=== PATIENT | female | born 1955 | race Caucasian/White ===

== ENCOUNTER 2017-10-06 08:36 | Outpatient (CLI) | payer BC | END 2017-10-06 08:37 | disposition home or self-care (01) | LOC: BICULT 08:36 | PROVIDERS: ATTEND Urology | DX: N20.0 Calculus of kidney (principal); Z90.49 Acquired absence of other specified parts of digestive tract; M47.9 Spondylosis, unspecified | CPT/HCPCS: 36415; 74018; 76770; 80053; 80061; 81001; 82043; 83036; 84550; 87086 ==

== ENCOUNTER 2018-02-13 19:30 | Outpatient (CLI) | payer BC | END 2018-02-13 19:31 | disposition home or self-care (01) | LOC: SLEEPLAB 19:30 | PROVIDERS: ATTEND Family Medicine | DX: G47.33 Obstructive sleep apnea (adult) (pediatric) (principal); R53.83 Other fatigue; E66.9 Obesity, unspecified; R06.83 Snoring; I10 Essential (primary) hypertension; E11.9 Type 2 diabetes mellitus without complications; Z68.42 Body mass index [BMI] 45.0-49.9, adult | CPT/HCPCS: 95811 ==

== ENCOUNTER 2018-02-28 14:30 | Outpatient (CLI) | payer BC | END 2018-02-28 14:31 | disposition home or self-care (01) | LOC: BICMAMMO 14:30 | PROVIDERS: ATTEND Family Medicine | DX: R92.8 Other abnormal and inconclusive findings on diagnostic imaging of breast (principal); R92.1 Mammographic calcification found on diagnostic imaging of breast | CPT/HCPCS: 77066; G0279 ==

== ENCOUNTER → 2018-03-02 | Day surgery (SDC) | payer BC | LOC: BICULT 12:40 | PROVIDERS: ATTEND Family Medicine | PROC: 0HBT3ZX Excision of Right Breast, Percutaneous Approach, Diagnostic (ICD-10-PCS; principal; 2018-03-02) | DX: C50.411 Malignant neoplasm of upper-outer quadrant of right female breast (principal); Z17.0 Estrogen receptor positive status [ER+] | CPT/HCPCS: 19083; 88305; G0279 ==

== ENCOUNTER 2018-09-08 10:57 | Outpatient (CLI) | payer BC ==
[2018-09-08 11:39] LABS: Bilirubin Negative (Negative); Blood, Urine Trace (Negative); Clarity Clear (Clear); Glucose, Urine (Dipstick) Negative (Negative); Leukocyte Negative (Negative); Nitrite Negative (Negative); Protein, Urine (Dipstick) Negative (Neg-Trace); Urobilinogen 0.2 mg/dL (0.2-1.0); pH, Urine 5.5 (5.0-9.0)
[2018-09-08 11:47] LABS: Specific Gravity, Urine 1.005 (1.002-1.036)
--- NOTE | 2018-09-08 11:47 | ULT ---
BILATERAL RENAL ULTRASOUND COMPLETE: HISTORY: Kidney stones. FINDINGS: The right kidney measures 11.5 x 4.9 x 5.7 cm. The left kidney measures 11.9 x 5.95 x 5.7 cm. No renal hydronephrosis. No perinephric process. The bladder appears unremarkable. IMPRESSION: Unremarkable bilateral renal ultrasound. No evidence for obstruction or hydronephrosis. POS: [facility]
[2018-09-08 11:49] LABS: Anion Gap 13 mmol/L (10-20); BUN (Urea Nitrogen) 12 mg/dL (9.8-20.1); Calc. Creatinine Clearance 0 mL/min (70-130); Calcium 8.9 mg/dL (7.8-10.44); Carbon Dioxide 21 mmol/L (23-31); Chloride 109 mmol/L (98-107); Estimated GFR-MDRD 82; Glucose 176 mg/dL (80-115); Potassium 4.3 mmol/L (3.5-5.1); Sodium 139 mmol/L (136-145)
--- NOTE | 2018-09-08 11:58 | RAD ---
ABDOMEN 1 VIEW: HISTORY: Kidney stones, followup. COMPARISON: 11/03/2016. FINDINGS: Faint opacity overlying the expected region of the lower pole of the left kidney which certainly coul d potentially represent a small renal calculus or 2 adjacent calculi. Surgical clips in the right up per quadrant. No overt ureteral calculus. IMPRESSION: Small opacity/opacities, which could potentially represent calculi in the lower pole of the left kidn ey. POS: [facility]
[2018-09-08 14:50] LABS: Bacteria/HPF None Seen HPF (None Seen); RBC/HPF 0-3 HPF (0-3); Squamous Epithelial 0-3 HPF (0-3); WBC/HPF 0-3 HPF (0-3)
== END 2018-09-08 10:58 | disposition home or self-care (01) ==
LOC: SCSULT 10:57
PROVIDERS: ATTEND Urology
DX: N20.0 Calculus of kidney (principal); N28.9 Disorder of kidney and ureter, unspecified
CPT/HCPCS: 36415; 74018; 76770; 80048; 81001; 84550; 87086

== ENCOUNTER 2018-09-16 15:36 | Outpatient (CLI) | payer BC ==
--- NOTE | 2018-09-16 17:01 | RAD ---
LEFT KNEE FOUR VIEWS: 09/16/18 HISTORY: Left knee pain. Severe narrowing of the medial compartment and abnormal widening of the lateral compartment of the kn ee. Arthrosis of the femoropatellar joint. No evidence for acute fracture or dislocation. IMPRESSION: Very severe narrowing of the medial compartment of the knee with bone on bone sclerosis and eburnatio n and resultant marked abnormal widening of the lateral compartment. No acute fracture or dislocation . POS: [facility]
--- NOTE | 2018-09-16 17:05 | RAD ---
RIGHT KNEE FOUR VIEWS: 09/16/18 HISTORY: Right knee pain intermittently for years. History of arthritis. Very severe narrowing of the medial compartment with abnormal widening of the lateral compartment. In creased density in the suprapatellar recess region, evidence for some joint effusion. No acute fractu re or dislocation. IMPRESSION: Very severe narrowing of the medial compartment with resultant abnormal widening of the lateral fahad rtment. Evidence for some suprapatellar joint effusion. No acute fracture. POS: [facility]
== END 2018-09-16 15:37 | disposition home or self-care (01) ==
LOC: SCSRAD 15:36
PROVIDERS: ATTEND Family Medicine
DX: M25.561 Pain in right knee (principal); M25.562 Pain in left knee; M25.461 Effusion, right knee; M25.861 Other specified joint disorders, right knee; M25.862 Other specified joint disorders, left knee

== ENCOUNTER 2018-11-11 10:11 | Emergency (ER) | payer BC ==
[2018-11-11 11:52] LABS: #Eosinphils 0.2 thou/uL (0.0-0.7); #Lymphocytes 0.4 thou/uL (1.20-3.40); #Monocytes 0.6 thou/uL (0.11-0.59); #Neutrophils 5.1 thou/uL (1.40-6.50); %Basophils 0.4 % (0.0-1.0); %Eosinophils 2.8 % (0.0-10.0); %Lymphocytes 6.6 % (21.0-51.0); %Neutrophils 80.2 % (42.0-75.0); Hemoglobin 11.8 g/dL (12.0-16.0); Mean Corpuscular HGB CONC 32.5 g/dL (32.0-36.0); Mean Corpuscular Hemoglobin 30.2 pg (27.0-31.0); Mean Corpuscular Volume 93.1 fL (78.0-98.0); Mean Platelet Volume 8.1 fL (7.4-10.4); Platelet Count 197 thou/uL (130-400); RBC Distribution Width 13.2 % (11.5-14.5); Red Blood Cell (RBC) Count 3.89 mill/uL (4.20-5.40); White Blood Cell (WBC) Count 6.3 thou/uL (4.8-10.8)
[2018-11-11 12:17] LABS: ALT (SGPT) 13 U/L (8-55); AST (SGOT) 16 U/L (5-34); Albumin 3.7 g/dL (3.4-4.8); Alkaline Phosphatase 95 U/L (40-150); Anion Gap 10 mmol/L (10-20); BUN (Urea Nitrogen) 12 mg/dL (9.8-20.1); Bilirubin, Total 0.3 mg/dL (0.2-1.2); Calc. Creatinine Clearance 0 mL/min (70-130); Calcium 9.2 mg/dL (7.8-10.44); Carbon Dioxide 26 mmol/L (23-31); Chloride 108 mmol/L (98-107); Estimated GFR-MDRD 86; Globulin 2.4 g/dL (2.4-3.5); Glucose 149 mg/dL (80-115); Potassium 4.1 mmol/L (3.5-5.1); Protein, Total 6.1 g/dL (6.0-8.3); Sodium 140 mmol/L (136-145)
[2018-11-11] MEDS ORDERED: Meclizine HCl 25 MG TAB ONE (12:56)
== END 2018-11-11 15:42 | disposition home or self-care (01) ==
LOC: ERS 10:11
DX: E86.0 Dehydration (principal); E11.9 Type 2 diabetes mellitus without complications; E78.5 Hyperlipidemia, unspecified; I10 Essential (primary) hypertension; Z79.4 Long term (current) use of insulin
CPT/HCPCS: 36415; 80053; 85025; 93005; 96360; 96361

== ENCOUNTER 2019-09-11 12:59 | Outpatient (CLI) | payer BC ==
--- NOTE | 2019-09-11 14:31 | ULT ---
BILATERAL RENAL ULTRASOUND: Date: 09/11/2019 INDICATION: History of recurrent renal stones. COMPARISON: Prior exam dated 09/08/2018. FINDINGS: No focal renal lesion or hydronephrosis is evident. Visualized bladder is unremarkable appearing. The right kidney measured 10.7 x 5.4 x 5.5 cm. The left kidney measured 11.1 x 6.1 x 7.0 cm. The pre-voi d bladder volume was 220 mL. IMPRESSION: No focal renal lesions or hydronephrosis. POS: [facility]
--- NOTE | 2019-09-11 15:40 | RAD ---
EXAM: XR Abdomen 1 View/KUB PROVIDED CLINICAL HISTORY: Follow-up kidney stones. COMPARISON: 09/08/2018 FINDINGS: Surgical clips again overlie the right upper quadrant. Two small calcification again overlie the infe rior pole left renal shadow which are again likely reflective of renal calculi. Few calcifications overlie the pelvis probably related to phleboliths. No definite additional suspicious calcifications are seen. Right renal shadow is obscured by overlying bowel. Small amount of retained fecal material is seen throughout the colon. Bowel gas pattern is otherwise nonspecific. Mild degenerative changes noted in the spine. IMPRESSION: Left nephrolithiasis.
[2019-09-11 16:47] LABS: Anion Gap 14 mmol/L (10-20); BUN (Urea Nitrogen) 24 mg/dL (9.8-20.1); Calc. Creatinine Clearance 0 mL/min (70-130); Calcium 9.8 mg/dL (7.8-10.44); Carbon Dioxide 25 mmol/L (23-31); Chloride 104 mmol/L (98-107); Estimated GFR-MDRD 72; Glucose 169 mg/dL (80-115); Potassium 4.2 mmol/L (3.5-5.1); Sodium 139 mmol/L (136-145); Uric Acid 4.1 mg/dL (2.6-6.0)
[2019-09-11 16:50] LABS: Bacteria/HPF None Seen HPF (None Seen); Bilirubin Negative (Negative); Blood, Urine Negative (Negative); Clarity Clear (Clear); Glucose, Urine (Dipstick) Normal (Negative); Leukocyte Negative Leu/uL (Negative); Nitrite Negative (Negative); Protein, Urine (Dipstick) Negative (Neg-Trace); RBC/HPF 0-3 HPF (0-3); Squamous Epithelial 0-3 HPF (0-3); Urobilinogen Normal mg/dL (Less than 2); WBC/HPF 0-3 HPF (0-3)
== END 2019-09-11 13:00 | disposition home or self-care (01) ==
LOC: SCSULT 12:59
PROVIDERS: ATTEND Urology
DX: N20.0 Calculus of kidney (principal)
CPT/HCPCS: 36415; 74018; 76770; 80048; 81001; 84550